=== PATIENT | male | born 1995 | race African-American/Black ===

== ENCOUNTER 2017-11-11 16:59 | Emergency (ER) | payer MEDICAID, OTHER ==
[2017-11-11 17:22] VITALS: BP 132/60; PULSE 79; RESP 18; TEMP 99.3
--- NOTE | 2017-11-11 17:58 | ED ---
General Adult HPI - General Chief complaint: ENT Stated complaint: fever, sore throat Time Seen by Provider: 11/11/17 17:22 Source: patient, RN notes reviewed Mode of arrival: ambulatory Limitations: no limitations - History of Present Illness Initial comments: 22-year-old male presents for a chief complaint of sore throat. Patient states this has been ongoing for 3 days. Patient also has a slight cough. Patient states the cough is productive. Patient denies any history of asthma or COPD but patient does smoke. Patient did not check his temperature but states he felt like he had a fever yesterday. Patient has not tried any [id number] medications for relief. Patient denies any shortness of breath or chest pain. Patient denies any nausea or vomiting. No abdominal pain. Patient denies any urinary symptoms. - Related Data Previous Rx's Medication Instructions Recorded Benzonatate [Tessalon Perles] 100 mg PO Q8H PRN #15 capsule 11/11/17 Oseltamivir [Tamiflu] 75 mg PO Q12HR #10 cap 11/11/17 Allergies Allergy/AdvReac Type Severity Reaction Status Date / Time No Known Allergies Allergy Verified 11/11/17 17:22 Review of Systems ROS Statement: Those systems with pertinent positive or pertinent negative responses have been documented in the HPI. ROS Other: All systems not noted in ROS Statement are negative. Past Medical History Past Medical History: No Reported History History of Any Multi-Drug Resistant Organisms: None Reported Past Surgical History: No Surgical Hx Reported Past Psychological History: No Psychological Hx Reported Smoking Status: Current every day smoker Past Alcohol Use History: Occasional Past Drug Use History: None Reported General Exam Limitations: no limitations Eye exam: Present: normal appearance, PERRL, EOMI. Absent: scleral icterus, conjunctival injection, periorbital swelling ENT exam: Present: normal exam, normal oropharynx, mucous membranes moist, TM's normal bilaterally Neck exam: Present: normal inspection. Absent: tenderness, meningismus, lymphadenopathy Respiratory exam: Present: normal lung sounds bilaterally. Absent: respiratory distress, wheezes, rales, rhonchi, stridor Cardiovascular Exam: Present: regular rate, normal rhythm, normal heart sounds. Absent: systolic murmur, diastolic murmur, rubs, gallop, clicks Psychiatric exam: Present: normal affect, normal mood Course Vital Signs 11/11/17 17:19 Temperature 99.3 F Pulse Rate 79 Respiratory 18 Rate Blood Pressure 132/60 O2 Sat by Pulse 97 Oximetry Medical Decision Making - Medical Decision Making 22-year-old male presents to the emergency room for a chief complaint of sore ago. Patient states he has had a sore throat for 3 days. Patient also has a cough that his productive. Patient denies history of asthma or COPD but is a smoker. Patient denies any other symptoms including shortness of breath, chest pain, headache, abdominal pain, or nausea and vomiting. Patient has not had a flu shot. Vitals within normal limits and patient is afebrile in the emergency department: Temp 99.3, pulse 79, respirations 18, blood pressure 132/60, pulse ox 97 room air. Chest x-ray was ordered which demonstrates no acute cardiopulmonary process. Influenza B-positive. Strep negative. Patient will be prescribed Tessalon Perles. I discussed the risks and benefits of Tamiflu including the side effects. Patient requested to have a prescription of Tamiflu. He is to take Tylenol if he develops a fever. He can return to the emergency department if he develops shortness of breath or worsening symptoms. Otherwise he is to follow up with his primary care provider in one to 2 days. - Lab Data Lab Results 11/11/17 11/11/17 Range/Units 17:34 17:34 Influenza Type A RNA Not Detected (Not Detectd) Influenza Type B (PCR) Detected H (Not Detectd) Group A Strep Rapid Negative (Negative) Disposition Clinical Impression: Influenza B Disposition: HOME SELF-CARE Condition: Good Instructions: Influenza (ED) Additional Instructions: Please return to the emergency department if you have worsening symptoms or develops shortness of breath. Otherwise take Tessalon Perles as directed if needed. Take Tamiflu as directed. Take [id number] Tylenol or ibuprofen for fever relief and pain reduction. Follow up with primary care in 1-2 days. Prescriptions: Benzonatate [Tessalon Perles] 100 mg PO Q8H PRN #15 capsule PRN Reason: Cough Oseltamivir [Tamiflu] 75 mg PO Q12HR #10 cap Referrals: None,Stated [Primary Care Provider] - 1-2 days Time of Disposition: 18:27
--- NOTE | 2017-11-11 18:00 | XR ---
EXAMINATION TYPE: XR chest 2V DATE OF EXAM: 11/11/2017 COMPARISON: NONE INDICATION: January TECHNIQUE: Frontal and lateral views of the chest are obtained. FINDINGS: The heart size is normal. The pulmonary vasculature is normal. The lungs are clear. IMPRESSION: 1. No acute pulmonary process.
== END 2017-11-11 18:34 | disposition home or self-care (01) ==
LOC: EC 16:59
DX: J10.1 Influenza due to other identified influenza virus with other respiratory manifestations (principal); F17.200 Nicotine dependence, unspecified, uncomplicated
CPT/HCPCS: 71046; 87081; 87430; 87502; 99283

== ENCOUNTER 2018-07-29 12:46 | Emergency (ER) | payer MEDICAID, OTHER ==
[2018-07-29 12:59] VITALS: BP 138/78; PULSE 95; RESP 20; TEMP 98.4
[2018-07-29] MEDS ORDERED: ACET/COD 300 MG/30 MG STARTER PACK 6 TAB BTL PO STA (14:14)
--- NOTE | 2018-07-29 14:17 | ED ---
Skin/Abscess/FB HPI - General Chief complaint: Skin/Abscess/Foreign Body Stated complaint: Cyst on buttocks Time Seen by Provider: 07/29/18 14:10 Source: patient, RN notes reviewed Mode of arrival: ambulatory Limitations: no limitations - History of Present Illness Initial comments: This a 23-year-old male presents emergency Department chief complaint of abscess on his buttocks region. Patient states he has multiple. Patient states he also has some sores on his leg. Patient states his started after he had out of snf a few days ago. Patient has no other complaints are chao. 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 Patient reports no fever no chills. Patient offers no other complaints. - Related Data Previous Rx's Medication Instructions Recorded Benzonatate [Tessalon Perles] 100 mg PO Q8H PRN #15 capsule 11/11/17 Oseltamivir [Tamiflu] 75 mg PO Q12HR #10 cap 11/11/17 Cephalexin [Keflex] 500 mg PO Q6HR #40 cap 07/29/18 Ibuprofen [Motrin] 600 mg PO Q8HR PRN #30 tab 07/29/18 Sulfamethox-Tmp 800-160Mg [Bactrim 1 each PO Q12HR #20 tab 07/29/18 Ds] Allergies Allergy/AdvReac Type Severity Reaction Status Date / Time No Known Allergies Allergy Verified 07/29/18 12:59 Review of Systems ROS Statement: Those systems with pertinent positive or pertinent negative responses have been documented in the HPI. ROS Other: All systems not noted in ROS Statement are negative. Past Medical History Past Medical History: No Reported History History of Any Multi-Drug Resistant Organisms: None Reported Past Surgical History: No Surgical Hx Reported Past Psychological History: No Psychological Hx Reported Smoking Status: Current every day smoker Past Alcohol Use History: Occasional Past Drug Use History: None Reported General Exam Limitations: no limitations General appearance: alert, in no apparent distress Head exam: Present: atraumatic, normocephalic, normal inspection Eye exam: Present: normal appearance, PERRL, EOMI. Absent: scleral icterus, conjunctival injection, periorbital swelling Respiratory exam: Present: normal lung sounds bilaterally. Absent: respiratory distress, wheezes, rales, rhonchi, stridor Cardiovascular Exam: Present: regular rate, normal rhythm, normal heart sounds. Absent: systolic murmur, diastolic murmur, rubs, gallop, clicks GI/Abdominal exam: Present: soft, normal bowel sounds. Absent: distended, tenderness, guarding, rebound, rigid Skin exam: Present: warm, dry, intact, normal color, other (Multiple abscesses are open and draining and buttocks region large is on his right cheek with oxygen a 2 cm). Absent: rash Course Vital Signs 07/29/18 12:57 Temperature 98.4 F Pulse Rate 95 Respiratory 20 Rate Blood Pressure 138/78 O2 Sat by Pulse 99 Oximetry Medical Decision Making - Medical Decision Making 23-year-old male presented for abscesses. There are open and draining. Patient was started on Bactrim and Keflex. We did discuss warm compresses and close follow-up. Disposition Clinical Impression: Abscess of multiple sites, Abscess of buttock Disposition: HOME SELF-CARE Condition: Stable Instructions: Abscess (ED) Additional Instructions: Please return to the Emergency Department if symptoms worsen or any other concerns. Prescriptions: Cephalexin [Keflex] 500 mg PO Q6HR #40 cap Ibuprofen [Motrin] 600 mg PO Q8HR PRN #30 tab PRN Reason: Pain Sulfamethox-Tmp 800-160Mg [Bactrim Ds] 1 each PO Q12HR #20 tab Is patient prescribed a controlled substance at d/c from ED?: No Referrals: None,Stated [Primary Care Provider] - 1-2 days Time of Disposition: 14:17
== END 2018-07-29 14:26 | disposition home or self-care (01) ==
LOC: EC 12:46
DX: L02.31 Cutaneous abscess of buttock (principal); L02.01 Cutaneous abscess of face; F17.200 Nicotine dependence, unspecified, uncomplicated; Z86.14 Personal history of Methicillin resistant Staphylococcus aureus infection
CPT/HCPCS: 99282

== ENCOUNTER 2021-12-28 20:15 | Emergency (ER) | payer OTHER ==
[2021-12-28] MEDS ORDERED: NALOXONE 0.4 MG/ML 1 ML VIAL IVP PRN (20:32)
[2021-12-28] MEDS ORDERED: SODIUM CHLORIDE 0.9% 1,000 ML IV STA (20:33)
[2021-12-28 20:36] VITALS: TEMP 97.9
--- NOTE | 2021-12-28 20:53 | ED ---
Overdose HPI - General Stated Complaint: Overdose Time Seen by Provider: 12/28/21 20:29 Source: RN notes reviewed - History of Present Illness Initial Comments: This is a pleasant 26-year-old male presents to emergency department admitting to using heroin, cocaine, and tramadol. He states she took 2 tramadol, has used cocaine within the last few hours as well as heroin. Apparently the patient lost consciousness and EMS was called. Patient responded to Narcan in the EMS rig. Right now is fatigue and drowsiness. He denies any pain. Denies any head or neck pain or injury. States he did not overdose on any other medications. Patient has consumed alcohol with last 24 hours. States he has a history of high blood pressure. No headache, no fever or chills, no changes in vision or hearing, no sore throat or difficulty with speech, no neck pain, no chest pain or shortness of breath, no abdominal pain, no nausea or vomiting, no changes in urination or bowel movements, no numbness or tingling, no extremity pain, no skin rashes or lesions. MD Complaint: intentional overdose - Related Data Home Medications Medication Instructions Recorded Confirmed No Known Home Medications 12/28/21 12/28/21 Allergies Allergy/AdvReac Type Severity Reaction Status Date / Time No Known Allergies Allergy Verified 12/28/21 22:22 Review of Systems ROS Statement: Those systems with pertinent positive or pertinent negative responses have been documented in the HPI. ROS Other: All systems not noted in ROS Statement are negative. Past Medical History Past Medical History: No Reported History History of Any Multi-Drug Resistant Organisms: None Reported Past Surgical History: No Surgical Hx Reported Past Psychological History: No Psychological Hx Reported Past Alcohol Use History: Occasional Past Drug Use History: None Reported General Exam - General Exam Comments Initial Comments: Patient appears somewhat fatigued and drowsy but is giving adequate history. Cranial nerves II through XII are intact. No evidence of head injury or trauma. General appearance: alert, in no apparent distress, appears intoxicated (Appears drowsy) Head exam: Present: atraumatic, normocephalic, normal inspection Eye exam: Present: normal appearance, PERRL, EOMI. Absent: scleral icterus, conjunctival injection, periorbital swelling Pupils: Present: normal accommodation. Absent: unequal ENT exam: Present: normal exam, mucous membranes moist Neck exam: Present: normal inspection. Absent: tenderness, meningismus, lymphadenopathy Respiratory exam: Present: normal lung sounds bilaterally. Absent: respiratory distress, wheezes, rales, rhonchi, stridor, chest wall tenderness, accessory muscle use, decreased breath sounds, prolonged expiratory Cardiovascular Exam: Present: regular rate, normal rhythm, normal heart sounds. Absent: systolic murmur, diastolic murmur, rubs, gallop, clicks GI/Abdominal exam: Present: soft, normal bowel sounds. Absent: distended, tenderness, guarding, rebound, rigid Extremities exam: Present: normal inspection, full ROM, normal capillary refill. Absent: tenderness, pedal edema, joint swelling, calf tenderness Back exam: Present: normal inspection, full ROM. Absent: tenderness, muscle spasm, paraspinal tenderness, vertebral tenderness, rash noted Neurological exam: Present: alert, oriented X3, CN II-XII intact Expanded Patient oriented to: Present: person, place, time Speech: Present: fluid speech Cranial nerves: EOM's Intact: Normal, Gag Reflex: Normal, Tongue Deviation: Normal, Nystagmus: Normal, Facial Sensation: Normal Motor strength exam: RUE: 5, LUE: 5, RLE: 5, LLE: 5 Eye Response: (4) open spontaneously Motor Response: (6) obeys commands Verbal Response: (5) oriented Psychiatric exam: Present: normal affect, normal mood. Absent: anxious, flat affect, homicidal ideation, suicidal ideation Skin exam: Present: warm, dry, intact, normal color. Absent: rash Course Vital Signs 12/28/21 12/28/21 12/28/21 20:20 20:36 20:38 Temperature 97.9 F Pulse Rate 105 H 101 H Respiratory 10 L 10 L Rate Blood Pressure 129/73 129/73 O2 Sat by Pulse 98 Oximetry - Reevaluation(s) Reevaluation #1: 12/28/21 22:39 Medical record is reviewed Symptoms are improved here in the emergency department Patient is informed of results and questions answered Patient in no distress Medical Decision Making - Medical Decision Making Percents after an accidental heroin overdose. Denies suicidality or homicidality. Denies taking any other medications other than to Ultram which she normally takes for his back. Does admit to cocaine abuse and use over the last 24 hours. Also alcohol. Responded to Narcan. - Lab Data Result diagrams: 12/28/21 20:45 12/28/21 20:45 Lab Results 12/28/21 12/28/21 12/28/21 Range/Units 20:45 20:45 20:45 WBC 9.3 (3.8-10.6) k/uL RBC 5.01 (4.30-5.90) m/uL Hgb 15.3 (13.0-17.5) gm/dL Hct 44.4 (39.0-53.0) % MCV 88.5 (80.0-100.0) fL MCH 30.5 (25.0-35.0) pg MCHC 34.4 (31.0-37.0) g/dL RDW 14.4 (11.5-15.5) % Plt Count 213 (150-450) k/uL MPV 6.8 Neutrophils % 80 % Lymphocytes % 13 % Monocytes % 5 % Eosinophils % 0 % Basophils % 0 % Neutrophils # 7.4 (1.3-7.7) k/uL Lymphocytes # 1.2 (1.0-4.8) k/uL Monocytes # 0.5 (0-1.0) k/uL Eosinophils # 0.0 (0-0.7) k/uL Basophils # 0.0 (0-0.2) k/uL PT 12.7 H (9.0-12.0) sec INR 1.2 H (<1.2) Sodium 140 (137-145) mmol/L Potassium 4.1 (3.5-5.1) mmol/L Chloride 103 (98-107) mmol/L Carbon Dioxide 23 (22-30) mmol/L Anion Gap 14 mmol/L BUN 10 (9-20) mg/dL Creatinine 1.16 (0.66-1.25) mg/dL Est GFR (CKD-EPI)AfAm >90 (>60 ml/min/1.73 sqM) Est GFR (CKD-EPI)NonAf 88 (>60 ml/min/1.73 sqM) Glucose 120 H (74-99) mg/dL Calcium 8.7 (8.4-10.2) mg/dL Total Bilirubin 1.0 (0.2-1.3) mg/dL AST 31 (17-59) U/L ALT 21 (4-49) U/L Alkaline Phosphatase 43 (38-126) U/L Troponin I (0.000-0.034) ng/mL Total Protein 7.7 (6.3-8.2) g/dL Albumin 4.8 (3.5-5.0) g/dL Salicylates <1.0 mg/dL Acetaminophen <10.0 ug/mL Serum Alcohol 45 mg/dL 12/28/21 Range/Units 20:45 WBC (3.8-10.6) k/uL RBC (4.30-5.90) m/uL Hgb (13.0-17.5) gm/dL Hct (39.0-53.0) % MCV (80.0-100.0) fL MCH (25.0-35.0) pg MCHC (31.0-37.0) g/dL RDW (11.5-15.5) % Plt Count (150-450) k/uL MPV Neutrophils % % Lymphocytes % % Monocytes % % Eosinophils % % Basophils % % Neutrophils # (1.3-7.7) k/uL Lymphocytes # (1.0-4.8) k/uL Monocytes # (0-1.0) k/uL Eosinophils # (0-0.7) k/uL Basophils # (0-0.2) k/uL PT (9.0-12.0) sec INR (<1.2) Sodium (137-145) mmol/L Potassium (3.5-5.1) mmol/L Chloride (98-107) mmol/L Carbon Dioxide (22-30) mmol/L Anion Gap mmol/L BUN (9-20) mg/dL Creatinine (0.66-1.25) mg/dL Est GFR (CKD-EPI)AfAm (>60 ml/min/1.73 sqM) Est GFR (CKD-EPI)NonAf (>60 ml/min/1.73 sqM) Glucose (74-99) mg/dL Calcium (8.4-10.2) mg/dL Total Bilirubin (0.2-1.3) mg/dL AST (17-59) U/L ALT (4-49) U/L Alkaline Phosphatase (38-126) U/L Troponin I <0.012 (0.000-0.034) ng/mL Total Protein (6.3-8.2) g/dL Albumin (3.5-5.0) g/dL Salicylates mg/dL Acetaminophen ug/mL Serum Alcohol mg/dL - EKG Data EKG Comments: EKG done at 2055 and read by the ED attending physician reveals sinus rhythm with a rate in 96. Possible left atrial enlargement, RSR pattern noted in V1 and V2. No acute ST or T-wave changes. Normal axis. Normal intervals. Disposition Clinical Impression: Heroin abuse, Cocaine abuse, Accidental drug overdose Disposition: HOME SELF-CARE Condition: Good Instructions (If sedation given, give patient instructions): Adult Overdose (ED), Polysubstance Abuse (ED) Additional Instructions: Follow-up with your regular physician as directed. Return to the ER immediately if any symptoms worsen, new symptoms arise, or any other problems develop. Provide patient with outpatient resources for substance abuse Is patient prescribed a controlled substance at d/c from ED?: No Referrals: Abdullahi Whitt [STAFF PHYSICIAN] - 1-2 days Time of Disposition: 22:39
[2021-12-28 21:06] LABS: Basophils % (A) 0 %; Eosinophils % (A) 0 %; HCT 44.4 % (39.0-53.0); HGB 15.3 gm/dL (13.0-17.5); Lymphocytes # (A) 1.2 k/uL (1.0-4.8); Lymphocytes % (A) 13 %; MCH 30.5 pg (25.0-35.0); MCHC 34.4 g/dL (31.0-37.0); MCV 88.5 fL (80.0-100.0); Mean Platelet Volume 6.8; Monocytes # (A) 0.5 k/uL (0-1.0); Monocytes % (A) 5 %; Neutrophils # (A) 7.4 k/uL (1.3-7.7); Neutrophils % (A) 80 %; Platelet Count 213 k/uL (150-450); RBC 5.01 m/uL (4.30-5.90); RDW 14.4 % (11.5-15.5); WBC 9.3 k/uL (3.8-10.6)
--- NOTE | 2021-12-28 21:06 | XR ---
EXAMINATION TYPE: XR chest 1V portable DATE OF EXAM: 12/28/2021 COMPARISON: 11/11/2017 HISTORY: Pain TECHNIQUE: Single view FINDINGS: Heart and mediastinum are normal. Lungs are clear. Diaphragm is normal. There are chest nicole ds. Bony thorax is intact. IMPRESSION: Normal chest. No change.
[2021-12-28 21:15] LABS: INR 1.2 (<1.2); Prothrombin Time 12.7 sec (9.0-12.0)
[2021-12-28 21:21] LABS: ALT 21 U/L (4-49); Acetaminophen <10.0 ug/mL; African American GFR (CKD) >90 (>60 ml/min/1.73 sqM); Albumin 4.8 g/dL (3.5-5.0); Alcohol 45 mg/dL; Anion Gap 14 mmol/L; Blood Urea Nitrogen 10 mg/dL (9-20); Calcium 8.7 mg/dL (8.4-10.2); Carbon Dioxide 23 mmol/L (22-30); Chloride 103 mmol/L (98-107); Glucose 120 mg/dL (74-99); Non-African American GFR(CKD) 88 (>60 ml/min/1.73 sqM); Salicylate <1.0 mg/dL; Sodium 140 mmol/L (137-145); Total Protein 7.7 g/dL (6.3-8.2)
[2021-12-28 21:53] LABS: AST 31 U/L (17-59); Alkaline Phosphatase 43 U/L (38-126); Potassium 4.1 mmol/L (3.5-5.1)
[2021-12-28 23:03] VITALS: BP 121/77; PULSE 84; RESP 16
== END 2021-12-28 23:11 | disposition home or self-care (01) ==
LOC: EC 20:15
DX: T40.1X1A Poisoning by heroin, accidental (unintentional), initial encounter (principal); F11.10 Opioid abuse, uncomplicated; F14.10 Cocaine abuse, uncomplicated; R53.83 Other fatigue; R40.0 Somnolence
CPT/HCPCS: 93005; 80053; 84484; 85025; 85610; 80143; 80179; 71045; 99284; 96374; 96361; G0480; J2310; 80320

== ENCOUNTER 2022-01-09 12:07 | Observation (INO) | payer OTHER ==
--- NOTE | 2022-01-09 13:16 | ED ---
Overdose HPI - General Source: patient, EMS, RN notes reviewed Mode of arrival: EMS Limitations: altered mental status <Phu Worrell - Last Filed: 01/09/22 13:14> - History of Present Illness MD Complaint: accidental overdose -: unknown Intent: unwilling to say Context: Intentional Overdose: drug/ETOH problems Context: Accidental Overdose: wanted to get high Associated Symptoms: depression Treatments Prior to Arrival: none <Roderick Brambila - Last Filed: 01/10/22 01:16> - General Chief Complaint: Overdose Stated Complaint: overdose Time Seen by Provider: 01/09/22 12:11 - History of Present Illness Initial Comments: This a 26-year-old male presents emergency department via EMS for overdose. Patient reportedly was found in the home and conscious. Patient did receive 2 mg Narcan by EMS. Patient did arouse. Patient did have an episode of emesis and which they found a bag full of white substance. Patient has had recent ER visit for heroin and cocaine use. Patient is drowsy patient has no physical complaints other than feeling cold at this time. (Phu Worrell) - Related Data Home Medications Medication Instructions Recorded Confirmed No Known Home Medications 12/28/21 01/09/22 Allergies Allergy/AdvReac Type Severity Reaction Status Date / Time No Known Allergies Allergy Verified 01/09/22 14:18 Review of Systems ROS Other: All systems not noted in ROS Statement are negative. <Phu Worrell - Last Filed: 01/09/22 13:14> ROS Other: All systems not noted in ROS Statement are negative. <Roderick Brambila - Last Filed: 01/10/22 01:16> ROS Statement: Those systems with pertinent positive or pertinent negative responses have been documented in the HPI. Past Medical History Past Medical History: No Reported History History of Any Multi-Drug Resistant Organisms: None Reported Past Surgical History: No Surgical Hx Reported Past Psychological History: No Psychological Hx Reported Smoking Status: Unknown if ever smoked Past Alcohol Use History: Occasional Past Drug Use History: None Reported <Phu Worrell - Last Filed: 01/09/22 13:14> General Exam Limitations: altered mental status General appearance: alert, in no apparent distress Head exam: Present: atraumatic, normocephalic, normal inspection Eye exam: Present: normal appearance, PERRL, EOMI. Absent: scleral icterus, conjunctival injection, periorbital swelling ENT exam: Present: normal exam, normal oropharynx, mucous membranes moist Neck exam: Present: normal inspection, full ROM. Absent: tenderness, m eningismus, lymphadenopathy Respiratory exam: Present: normal lung sounds bilaterally. Absent: respiratory distress, wheezes, rales, rhonchi, stridor Cardiovascular Exam: Present: regular rate, normal rhythm, normal heart sounds. Absent: systolic murmur, diastolic murmur, rubs, gallop, clicks GI/Abdominal exam: Present: soft, normal bowel sounds. Absent: distended, tenderness, guarding, rebound, rigid Neurological exam: Present: alert Skin exam: Present: warm, dry, intact, normal color. Absent: rash <Phu Worrell M - Last Filed: 01/09/22 13:14> Limitations: altered mental status General appearance: alert, lethargic, obtunded Head exam: Present: atraumatic, normocephalic, normal inspection Eye exam: Present: normal appearance, PERRL, EOMI. Absent: scleral icterus, conjunctival injection, periorbital swelling ENT exam: Present: normal exam, mucous membranes moist Neck exam: Present: normal inspection. Absent: tenderness, meningismus, lymphadenopathy Respiratory exam: Present: normal lung sounds bilaterally. Absent: respiratory distress, wheezes, rales, rhonchi, stridor Cardiovascular Exam: Present: regular rate, normal rhythm, normal heart sounds. Absent: systolic murmur, diastolic murmur, rubs, gallop, clicks GI/Abdominal exam: Present: soft, normal bowel sounds. Absent: distended, tenderness, guarding, rebound, rigid Extremities exam: Present: normal inspection, full ROM, normal capillary refill. Absent: tenderness, pedal edema, joint swelling, calf tenderness Back exam: Present: normal inspection Neurological exam: Present: alert, oriented X3, CN II-XII intact Psychiatric exam: Present: normal affect, normal mood Skin exam: Present: warm, dry, intact, normal color. Absent: rash <Roderick Brambila - Last Filed: 01/10/22 01:16> Course <Roderick Brambila - Last Filed: 01/10/22 01:16> Vital Signs 01/09/22 01/09/22 01/09/22 12:12 16:12 16:13 Temperature 98.7 F Pulse Rate 89 109 H Respiratory 18 16 24 Rate Blood Pressure 118/86 123/69 O2 Sat by Pulse 98 98 Oximetry 01/09/22 01/10/22 18:53 00:11 Temperature 100.5 F H Pulse Rate 107 H 104 H Respiratory 26 H 18 Rate Blood Pressure 123/69 111/64 O2 Sat by Pulse 97 98 Oximetry - Reevaluation(s) Reevaluation #1: 01/10/22 01:15 Records reviewed (Roderick Brambila) Reevaluation #2: 01/10/22 01:15 Patient still has episodes of diminished responsiveness (Roderick Brambila) Medical Decision Making <Roderick Brambila - Last Filed: 01/10/22 01:16> - Medical Decision Making 26 male for psychiatric evaluation known drug ingestion still with diminished both of responsiveness, patient will be admitted for psychiatric evaluation and treatment as well as monitoring of overdose (Roderick Brambila) - Lab Data Lab Results 01/09/22 Range/Units 15:58 Urine Opiates Screen Not Detected (NotDetected) Ur Oxycodone Screen Not Detected (NotDetected) Urine Methadone Screen Not Detected (NotDetected) Ur Propoxyphene Screen Not Detected (NotDetected) Ur Barbiturates Screen Not Detected (NotDetected) U Tricyclic Antidepress Not Detected (NotDetected) Ur Phencyclidine Scrn Not Detected (NotDetected) Ur Amphetamines Screen Not Detected (NotDetected) U Methamphetamines Scrn Not Detected (NotDetected) U Benzodiazepines Scrn Not Detected (NotDetected) Urine Cocaine Screen Detected H (NotDetected) U Marijuana (THC) Screen Detected H (NotDetected) Disposition <Phu Worrell - Last Filed: 01/09/22 13:14> Is patient prescribed a controlled substance at d/c from ED?: No <Roderick Brambila - Last Filed: 01/10/22 01:16> Clinical Impression: Heroin abuse, Cocaine abuse, Accidental drug overdose, Drug overdose Disposition: ADMITTED IP TO THIS HOSP Condition: Fair Referrals: None,Stated [Primary Care Provider] - 1-2 days
[2022-01-09] MEDS ORDERED: NALOXONE 0.4 MG/ML 1 ML VIAL IVP STA (16:04)
[2022-01-09] MEDS ORDERED: ONDANSETRON 4 MG/2 ML VIAL IVP STA (16:04)
[2022-01-09 17:03] LABS: Amphetamine Screen,Urine Not Detected (NotDetected); Benzodiazepines Screen,Urine Not Detected (NotDetected); Cocaine Screen,Urine Detected (NotDetected); Methadone Screen, Urine Not Detected (NotDetected); Opiate Screen,Urine Not Detected (NotDetected); Phencyclidine Screen,Urine Not Detected (NotDetected); Tricyclic Antidepressant,Urine Not Detected (NotDetected); Urn Cannabinoid Scrn Detected (NotDetected)
[2022-01-09 17:04] LABS: Barbiturate Screen,Urine Not Detected (NotDetected); Oxycodone Screen, Urine Not Detected (NotDetected)
[2022-01-10] MEDS ORDERED: ACETAMINOPHEN TAB 500 MG TAB PO STA (00:10)
[2022-01-10] MEDS ORDERED: NALOXONE 0.4 MG/ML 1 ML VIAL IV PRN (01:11)
[2022-01-10] MEDS ORDERED: ONDANSETRON 4 MG/2 ML VIAL IVP PRN (01:11)
[2022-01-10] MEDS ORDERED: IBUPROFEN 800 MG TAB PO STA (01:11)
[2022-01-10] MEDS: SODIUM CHLORIDE 0.9% 1,000 ML IV SCH ×4 (02:23→23:16)
[2022-01-10 02:40] LABS: INR 1.3 (<1.2)
[2022-01-10 02:55] LABS: ALT 20 U/L (4-49); AST 38 U/L (17-59); African American GFR (CKD) >90 (>60 ml/min/1.73 sqM); Alkaline Phosphatase 37 U/L (38-126); Anion Gap 6 mmol/L; Blood Urea Nitrogen 11 mg/dL (9-20); Calcium 7.9 mg/dL (8.4-10.2); Carbon Dioxide 28 mmol/L (22-30); Chloride 101 mmol/L (98-107); Glucose 97 mg/dL (74-99); Magnesium 1.4 mg/dL (1.6-2.3); Non-African American GFR(CKD) >90 (>60 ml/min/1.73 sqM); Phosphorus 3.1 mg/dL (2.5-4.5); Sodium 135 mmol/L (137-145); Total Bilirubin 0.9 mg/dL (0.2-1.3); Total Protein 5.3 g/dL (6.3-8.2)
[2022-01-10 03:03] LABS: Basophils # (A) 0.1 k/uL (0-0.2); Basophils % (A) 0 %; Eosinophils % (A) 0 %; HCT 43.7 % (39.0-53.0); Lymphocytes # (A) 0.6 k/uL (1.0-4.8); Lymphocytes % (A) 3 %; MCH 28.9 pg (25.0-35.0); MCV 90.1 fL (80.0-100.0); Monocytes # (A) 1.3 k/uL (0-1.0); Monocytes % (A) 6 %; Neutrophils # (A) 19.1 k/uL (1.3-7.7); Neutrophils % (A) 90 %; Platelet Count 168 k/uL (150-450); RBC 4.85 m/uL (4.30-5.90); WBC 21.2 k/uL (3.8-10.6)
--- NOTE | 2022-01-10 06:37 | XR ---
EXAMINATION TYPE: XR chest 1V portable DATE OF EXAM: 01/10/2022 COMPARISON: 12/28/2021 HISTORY: Possible foreign body TECHNIQUE: Single view FINDINGS: Heart is normal. There is some diffuse pneumonia left lower lobe. There is a minimal infilt rate also right lower lobe. No heart failure. There are no hilar masses. IMPRESSION: Left lower lobe pneumonia appears new compared to old exam. No evidence of a foreign body .
--- NOTE | 2022-01-10 06:38 | XR ---
EXAMINATION TYPE: XR KUB portable DATE OF EXAM: 01/10/2022 COMPARISON: NONE HISTORY: Foreign body TECHNIQUE: 2 views FINDINGS: 2 views upright were obtained. No sign of intestinal obstruction or pneumoperitoneum. Fecal pattern is normal. No sign of radiopaque foreign body in the abdomen. There is no evidence of a mass . IMPRESSION: Nonacute abdomen.
--- NOTE | 2022-01-10 12:31 | P.HPIM ---
History of Present Illness H&P Date: 01/10/22 Chief Complaint: Accidental overdose 26-year-old man who has polysubstance abuse issues presented with a several overdose. Patient was in his house using heroin, and was found down by emergency medical services. Patient was given 2 mg of Narcan and came back around, then pursue this to vomit up some bags of cocaine. Patient was brought in by ambulance for further workup. Family would like patient to be evaluated by psychiatry, but have not committed him at this time. Upon my evaluation today, patient reports feeling back to normal, and expresses his wish to leave the hospital. I told him that at this time we are waiting for psychiatry evaluation, and would follow-up with him later in the day. He denies fevers, chills, nausea, vomiting, chest pain, palpitations, sick day, present rate, cough, dyspnea, abdominal pain, constipation, diarrhea, dysuria, dyschezia, numbness/weakness of extremities. In the emergency room, patient is afebrile, 116/77, heart rate is 88, 97% on room air. CBC shows leukocytosis at 21.2. Chemistries are unremarkable. LFTs showed low total protein of 5.3, low albumin of 3.0. Coags are significant for an elevated PT of 14, elevated INR 1.3. Urine tox screen is positive for cocaine, marijuana. Influenza A/B, Covid, RSV are all negative. Chest x-ray shows left lower lobe pneumonia which appears new compared to old exam. KUB shows nonacute abdomen. All Systems reviewed and pertinent positives and negatives noted in HPI, all other symptoms are negative Gen: in no apparent distress, resting comfortably in bed Eyes: PERRL, no scleral injection or icterus HENT: normocephalic, atraumatic, good hearing acuity, moist mucous membranes Neck: no tracheal deviation, full range of motion Resp: good air exchange, breathing comfortably with no accessory muscle use, no tactile fremitus CVS: good distal perfusion x 4, no pitting edema GI: soft, NTTP, ND, no hepatosplenomegaly : no suprapubic tenderness, no CVAT, foote catheter not present MSK: no clubbing, no cyanosis, no noted contractures of extremities Skin: no noted rashes, petechiae; temperature of skin is appropriate Neuro: moving all extremities without signs of weakness, CN II-XII intact Psych: cooperative, euthymic mood, insight and judgment impaired Labs and imaging reviewed as above Assessment/plan: Accidental narcotic overdose Heroin abuse Cocaine abuse Marijuana abuse -Admit to observation -Psychiatry consult -Narcan when necessary -Zofran when necessary -Clonidine when necessary for withdrawal symptoms -One-to-one sitter Patient is full code DVT prophylaxis with early ambulation Past Medical History Past Medical History: No Reported History History of Any Multi-Drug Resistant Organisms: None Reported Past Surgical History: No Surgical Hx Reported Past Psychological History: No Psychological Hx Reported Smoking Status: Unknown if ever smoked Past Alcohol Use History: Occasional Past Drug Use History: None Reported Medications and Allergies Home Medications Medication Instructions Recorded Confirmed Type No Known Home Medications 12/28/21 01/09/22 History Allergies Allergy/AdvReac Type Severity Reaction Status Date / Time No Known Allergies Allergy Verified 01/09/22 14:18 Physical Exam Osteopathic Statement: *. No significant issues noted on an osteopathic structural exam other than those noted in the History and Physical/Consult. Vitals: Vital Signs Temp Pulse Resp BP Pulse Ox 01/10/22 12:00 88 16 116/77 97 01/10/22 08:45 90 18 105/51 98 01/10/22 06:00 91 18 01/10/22 05:00 95 18 103/61 99 01/10/22 04:00 93 18 103/55 100 01/10/22 03:00 92 18 01/10/22 02:00 76 18 107/55 97 01/10/22 01:00 95 18 104/76 98 01/10/22 00:11 100.5 F H 104 H 18 111/64 98 01/09/22 18:53 107 H 26 H 123/69 97 01/09/22 16:13 109 H 24 123/69 98 01/09/22 16:12 16 Results CBC & Chem 7: 01/10/22 02:25 01/10/22 02:25 Labs: Abnormal Lab Results - Last 24 Hours (Table) 01/09/22 01/10/22 01/10/22 Range/Units 15:58 02:25 02:25 WBC 21.2 H (3.8-10.6) k/uL Neutrophils # 19.1 H (1.3-7.7) k/uL Lymphocytes # 0.6 L (1.0-4.8) k/uL Monocytes # 1.3 H (0-1.0) k/uL PT 14.0 H (9.0-12.0) sec INR 1.3 H (<1.2) Sodium (137-145) mmol/L Calcium (8.4-10.2) mg/dL Magnesium (1.6-2.3) mg/dL Alkaline Phosphatase (38-126) U/L Total Protein (6.3-8.2) g/dL Albumin (3.5-5.0) g/dL Urine Cocaine Screen Detected H (NotDetected) U Marijuana (THC) Screen Detected H (NotDetected) 01/10/22 Range/Units 02:25 WBC (3.8-10.6) k/uL Neutrophils # (1.3-7.7) k/uL Lymphocytes # (1.0-4.8) k/uL Monocytes # (0-1.0) k/uL PT (9.0-12.0) sec INR (<1.2) Sodium 135 L (137-145) mmol/L Calcium 7.9 L (8.4-10.2) mg/dL Magnesium 1.4 L (1.6-2.3) mg/dL Alkaline Phosphatase 37 L (38-126) U/L Total Protein 5.3 L (6.3-8.2) g/dL Albumin 3.0 L (3.5-5.0) g/dL Urine Cocaine Screen (NotDetected) U Marijuana (THC) Screen (NotDetected)
[2022-01-10] MEDS ORDERED: ACETAMINOPHEN TAB 325 MG TAB PO PRN (12:33)
--- NOTE | 2022-01-10 13:27 | P.CN ---
Psychiatric Consult - . Consult date: 01/10/22 Consult:: 01/10/22 13:26 IDENTIFYING DATA: This patient is a single, unemployed, 26-year-old - [place] male with significant history of heroin addiction who presented to the hospital after an unintentional overdose. HISTORY OF PRESENT ILLNESS: The patient presented to the hospital on , brought into the hospital by EMS after an overdose on heroin. The patient was reportedly found his home and was administered Narcan by EMS. Patient was arousable and ended up with emesis. Prior to this presentation, the patient was also recently seen in the ED for heroin and cocaine use. Psychiatrist been consulted for psychiatric evaluation. Present at the patient's bedside as his mother Kaur. Patient is agreeable to having her present during the psychiatric evaluation. The patient vehemently states that his intention was to get high. He reports no intention at all to ever try to kill himself. He currently denies any suicidal or homicidal ideation, intention, and/or plan. He denies any prior attempts at suicide. The patient does not endorse any significant symptoms of depression at this time. He denies any changes in his appetite, sleep, crying episodes, anhedonia, or motivation changes. He and his mother both acknowledge some irritability however denies any significant symptoms of overt arelis or hypomania. The patient does not report any significant history of auditory or visual hallucinations. He denies any paranoia or other delusions. The patient does have a significant history of substance abuse. He has been abusing heroin and cocaine. He reports that he last used yesterday. The patient has been previously admitted to [facility] for rehabilitation and was discharged this past September. He is currently not in any outpatient substance abuse treatment. The patient reports that he began using substances at the age of 20, starting with narcotic pills and transition to heroin when he was 24. The patient also denies any IV heroin use. PAST PSYCHIATRIC HISTORY: Patient reports no previous psychiatric history. Patient denies being on any psychiatric medications. The patient states that he was prescribed Vivitrol injection from [facility]. Patient denies any previous psychiatric hospitalizations. Patient denies any psychiatric outpatient follow-up. Patient denies any history of suicide attempts in the past. PAST MEDICAL HISTORY: Past Medical History: No Reported History History of Any Multi-Drug Resistant Organisms: None Reported Past Surgical History: No Surgical Hx Reported Past Psychological History: No Psychological Hx Reported Smoking Status: Unknown if ever smoked Past Alcohol Use History: Occasional Past Drug Use History: None Reported ALLERGIES: NO KNOWN DRUG ALLERGIES CHEMICAL DEPENDENCY HISTORY: as per HPI regarding his heroin abuse. Progress tobacco, the patient denies any tobacco or marijuana use. He reports no significant alcohol use. FAMILY PSYCHIATRIC/SUBSTANCE USE HISTORY: The patient and his mother both report significant history of schizophrenia and bipolar on his father's side. SOCIAL HISTORY: Patient was born and raised in [place], [place]. He graduated high school and was previously working in a factory. He lives with his mother. As per mother, the patient often stays at different friends' homes. He is single, never , and has no children. MENTAL STATUS EXAM: General Appearance: Patient appears to be stated age is alert and cooperative. Patient appears to have fair hygiene and grooming wearing hospital gown with intermittent eye contact. Behavior: Patient is calmly lying in bed without any agitated behavior. He does endorse some muscular pain. Speech: Patient's speech is fluent and nonpressured. Mood/Affect: Patient reports their mood is "okay", affect is congruent and euthymic. Suicidality/Homicidality: Patient vehemently denies any suicidal or homicidal ideation, intention, and/or plan. Perceptions: Patient denies any visual hallucinations and denies any auditory hallucinations Though content/process: There is no evidence of any delusional thought content and thought process is linear and goal-directed. Memory and concentration: AOX3, grossly intact for the purposes of this session. Can spell "WORLD" backwards Judgment and insight: Fair Vital Signs Temp 100.5 F H 01/10/22 00:11 Pulse 88 01/10/22 12:00 Resp 16 01/10/22 12:00 BP 116/77 01/10/22 12:00 Pulse Ox 97 01/10/22 12:00 FiO2 Intake & Output 01/09/22 01/10/22 01/10/22 18:59 06:59 18:59 Weight 72.575 kg Laboratory Results WBC 21.2 k/uL (3.8-10.6) H 01/10/22 02:25 RBC 4.85 m/uL (4.30-5.90) 01/10/22 02:25 Hgb 14.0 gm/dL (13.0-17.5) 01/10/22 02:25 Hct 43.7 % (39.0-53.0) 01/10/22 02:25 MCV 90.1 fL (80.0-100.0) 01/10/22 02:25 MCH 28.9 pg (25.0-35.0) 01/10/22 02:25 MCHC 32.0 g/dL (31.0-37.0) 01/10/22 02:25 RDW 13.0 % (11.5-15.5) 01/10/22 02:25 Plt Count 168 k/uL (150-450) 01/10/22 02:25 MPV 7.0 01/10/22 02:25 Neutrophils % 90 % 01/10/22 02:25 Lymphocytes % 3 % 01/10/22 02:25 Monocytes % 6 % 01/10/22 02:25 Eosinophils % 0 % 01/10/22 02:25 Basophils % 0 % 01/10/22 02:25 Neutrophils # 19.1 k/uL (1.3-7.7) H 01/10/22 02:25 Lymphocytes # 0.6 k/uL (1.0-4.8) L 01/10/22 02:25 Monocytes # 1.3 k/uL (0-1.0) H 01/10/22 02:25 Eosinophils # 0.0 k/uL (0-0.7) 01/10/22 02:25 Basophils # 0.1 k/uL (0-0.2) 01/10/22 02:25 PT 14.0 sec (9.0-12.0) H 01/10/22 02:25 INR 1.3 (<1.2) H 01/10/22 02:25 Sodium 135 mmol/L (137-145) L 01/10/22 02:25 Potassium 4.0 mmol/L (3.5-5.1) 01/10/22 02:25 Chloride 101 mmol/L (98-107) 01/10/22 02:25 Carbon Dioxide 28 mmol/L (22-30) 01/10/22 02:25 Anion Gap 6 mmol/L 01/10/22 02:25 BUN 11 mg/dL (9-20) 01/10/22 02:25 Creatinine 1.00 mg/dL (0.66-1.25) 01/10/22 02:25 Est GFR (CKD-EPI)AfAm >90 (>60 ml/min/1.73 sqM) 01/10/22 02:25 Est GFR (CKD-EPI)NonAf >90 (>60 ml/min/1.73 sqM) 01/10/22 02:25 Glucose 97 mg/dL (74-99) 01/10/22 02:25 Calcium 7.9 mg/dL (8.4-10.2) L 01/10/22 02:25 Phosphorus 3.1 mg/dL (2.5-4.5) 01/10/22 02:25 Magnesium 1.4 mg/dL (1.6-2.3) L 01/10/22 02:25 Total Bilirubin 0.9 mg/dL (0.2-1.3) 01/10/22 02:25 AST 38 U/L (17-59) 01/10/22 02:25 ALT 20 U/L (4-49) 01/10/22 02:25 Alkaline Phosphatase 37 U/L (38-126) L 01/10/22 02:25 Total Protein 5.3 g/dL (6.3-8.2) L 01/10/22 02:25 Albumin 3.0 g/dL (3.5-5.0) L 01/10/22 02:25 Urine Opiates Screen Not Detected (NotDetected) 01/09/22 15:58 Ur Oxycodone Screen Not Detected (NotDetected) 01/09/22 15:58 Urine Methadone Screen Not Detected (NotDetected) 01/09/22 15:58 Ur Propoxyphene Screen Not Detected (NotDetected) 01/09/22 15:58 Ur Barbiturates Screen Not Detected (NotDetected) 01/09/22 15:58 U Tricyclic Antidepress Not Detected (NotDetected) 01/09/22 15:58 Ur Phencyclidine Scrn Not Detected (NotDetected) 01/09/22 15:58 Ur Amphetamines Screen Not Detected (NotDetected) 01/09/22 15:58 U Methamphetamines Scrn Not Detected (NotDetected) 01/09/22 15:58 U Benzodiazepines Scrn Not Detected (NotDetected) 01/09/22 15:58 Urine Cocaine Screen Detected (NotDetected) H 01/09/22 15:58 U Marijuana (THC) Screen Detected (NotDetected) H 01/09/22 15:58 Influenza Type A (PCR) Not Detected (Not Detectd) 01/10/22 02:25 Influenza Type B (PCR) Not Detected (Not Detectd) 01/10/22 02:25 RSV (PCR) Not Detected (Not Detectd) 01/10/22 02:25 SARS-CoV-2 (PCR) Not Detected (Not Detectd) 01/10/22 02:25 IMPRESSIONS: Unintentional overdose Heroin use disorder Cocaine use disorder PLAN: -At this time patient DOES NOT meet criteria for inpatient psychiatric admission. Primary diagnosis is unintentional overdose and heroin use disorder. The patient has not had any intention to try and kill himself, has no previous attempts at suicide, and has a supportive family. -Would recommend the following medication changes/additions: No medication recommendations or changes be made at this time. -Recommend the patient is given the access number to be reevaluated for inpatient substance abuse rehabilitation. -Approximately 20 minutes of this conversation was spent providing the patient with motivational interviewing and supportive psychotherapy in regards to substance abuse. Patient was psychiatric at it on the dangers of heroin and cocaine use including respiratory depression, cardiac arrest, and psychiatric sequelae. -Recommend outpatient substance abuse counseling and resources. -Psychiatry will sign off at this point, please contact with any questions. 01/10/22 13:26
[2022-01-10] MEDS: KETOROLAC 15 MG/ML 1 ML VIAL IVP PRN ×2 (13:31→19:29)
[2022-01-10] MEDS: AMPICILLIN-SULBACTAM 3 GM in SODIUM CHLORIDE 0.9% 100 ML IVPB SCH ×2 (16:09→23:15)
[2022-01-11] MEDS: KETOROLAC 15 MG/ML 1 ML VIAL IVP PRN ×2 (02:07→07:52)
[2022-01-11] MEDS: AMPICILLIN-SULBACTAM 3 GM in SODIUM CHLORIDE 0.9% 100 ML IVPB SCH (07:48)
[2022-01-11] MEDS: SODIUM CHLORIDE 0.9% 1,000 ML IV SCH (07:53)
[2022-01-11] MEDS ORDERED: ACETAMINOPHEN IV (For NPO) 1,000 MG in EMPTY BAG 1 BAG IVPB STA (09:05)
[2022-01-11 11:27] LABS: HCT 40.3 % (39.0-53.0); HGB 12.9 gm/dL (13.0-17.5); MCH 29.2 pg (25.0-35.0); MCHC 31.9 g/dL (31.0-37.0); MCV 91.6 fL (80.0-100.0); Mean Platelet Volume 7.3; Platelet Count 189 k/uL (150-450); RDW 12.8 % (11.5-15.5); WBC 18.5 k/uL (3.8-10.6)
[2022-01-11 11:40] LABS: African American GFR (CKD) >90 (>60 ml/min/1.73 sqM); Anion Gap 3 mmol/L; Blood Urea Nitrogen 7 mg/dL (9-20); Calcium 7.6 mg/dL (8.4-10.2); Carbon Dioxide 28 mmol/L (22-30); Chloride 102 mmol/L (98-107); Glucose 118 mg/dL (74-99); Non-African American GFR(CKD) >90 (>60 ml/min/1.73 sqM); Potassium 3.5 mmol/L (3.5-5.1); Sodium 133 mmol/L (137-145)
--- NOTE | 2022-01-11 12:41 | P.DS ---
Providers Date of admission: 01/10/22 01:11 Expected date of discharge: 01/11/22 Attending physician: Alla Dennis MD Consults: 01/10/22 01:11 Consult Physician Routine Consulting Provider: James Haider Consult Reason/Comments: psychEval Do you want consulting provider notified?: Already Contacted Primary care physician: Stated None Hospital Course: Discharge Diagnosis: Unintentional polysubstance overdose Opiate misuse Pneumonia with sepsis Tobacco abuse Hospital Course: Patient is a 26-year-old -[place] male with a history of polysubstance abuse who presented with polysubstance overdose. He was found in his house using heroin and was found down by EMS services. He was given Narcan and came back around. In the ER he underwent extensive evaluation. He was found to have elevated white blood cell count 23,000, chest x-ray of left lower lobe pneumonia. His urine tox came back positive for cocaine and marijuana. His influenza A/B, coping, and RSV were all negative. He was admitted for further monitoring. He was seen by psychiatry and is appears to be an unintentional overdose. He continued to do well. His white blood cell, is improving. He was determined stable for discharge home. Follow-up: Establish primary care physician, Dr. Mccloud has been suggested. Take Augmentin as prescribed. Return with signs and symptoms of worsening pneumonia. Patient seen and examined at bedside. We discussed his diagnosis of pneumonia and that he likely will continue to have some left-sided pain. He is aware. He is asking for pain medications. We discussed that he cannot be giving any opiate medications as he just presented with an overdose. He is understands and is in agreement. He is okay with going home with Motrin. He is asking when he can be discharged. Vital signs reviewed and stable. General: non toxic, no distress, appears at stated age Derm: warm, dry Head: atraumatic, normocephalic, symmetric Eyes: EOMI, no lid lag, anicteric sclera Mouth: no lip lesion, mucus membranes moist Cardiovascular: S1S2 reg, no murmur, positive posterior tibial pulse bilateral, Lungs: Rhonchi left base, no accessory muscle use Abdominal: soft, nontender to palpation, no guarding, no appreciable organomegaly Ext: no gross muscle atrophy, no edema, no contractures Neuro: CN II-XI grossly intact, no focal neuro deficits Psych: Alert, oriented, appropriate affect A total of 25 minutes of time were spent preparing this complex discharge summary. Patient was discharged on 01/11/22. Patient Condition at Discharge: Fair Plan - Discharge Summary New Discharge Prescriptions: New Amoxic-Pot Clav 875-125Mg [Augmentin 875-125] 1 tab PO Q12HR 5 Days #10 tab Ibuprofen [Motrin] 600 mg PO Q8HR PRN #30 tab PRN Reason: Pain Pantoprazole [Protonix] 40 mg PO DAILY #30 tab Discharge Medication List Amoxic-Pot Clav 875-125Mg [Augmentin 875-125] 1 tab PO Q12HR 5 Days #10 tab 01/11/22 [Rx] Ibuprofen [Motrin] 600 mg PO Q8HR PRN #30 tab 01/11/22 [Rx] Pantoprazole [Protonix] 40 mg PO DAILY #30 tab 01/11/22 [Rx] Follow up Appointment(s)/Referral(s): Taiwo Mccloud MD [STAFF PHYSICIAN] - 1 Week None,Stated [Primary Care Provider] - 1-2 days Activity/Diet/Wound Care/Special Instructions: Activity: as tolerated Diet: Regular Special Instructions: abstain from illicit substances Take all medications as prescribed You have pneumonia, please seek care if increasing fevers, coughing, chest pain. You also should follow-up wit a family doctor for your pneumonia, one has been listed for your on your discharge paperwork. Thank you giving us the privilege of caring for you, we wish you well on your journey to better health. Discharge Disposition: HOME SELF-CARE
[2022-01-11 12:51] VITALS: BP 115/72; PULSE 75; RESP 18; TEMP 98.4
--- NOTE | 2022-01-11 13:56 | XR ---
EXAMINATION TYPE: XR ribs LT DATE OF EXAM: 01/11/2022 COMPARISON: NONE HISTORY: Pain TECHNIQUE: 4 views are submitted FINDINGS: Osseous structures are intact. There is a left lower lobe infiltrate and small effusion. No acute displaced rib fracture. IMPRESSION: No acute displaced rib fracture. Left lower lobe pneumonia and small effusion suggested.
== END 2022-01-11 16:09 | disposition home or self-care (01) ==
LOC: EC 12:07 → 5NMEDONC 01-10 01:11
PROVIDERS: ADMIT Internal Medicine; ATTEND Internal Medicine
DX: T40.1X1A Poisoning by heroin, accidental (unintentional), initial encounter (principal); J69.0 Pneumonitis due to inhalation of food and vomit; A41.9 Sepsis, unspecified organism; T18.2XXA Foreign body in stomach, initial encounter; Z20.822 Contact with and (suspected) exposure to COVID-19; F11.10 Opioid abuse, uncomplicated; F12.10 Cannabis abuse, uncomplicated; F14.10 Cocaine abuse, uncomplicated; F32.A Depression, unspecified; R79.1 Abnormal coagulation profile; Z72.0 Tobacco use; Z71.51 Drug abuse counseling and surveillance of drug abuser; Z81.8 Family history of other mental and behavioral disorders; Y92.009 Unspecified place in unspecified non-institutional (private) residence as the place of occurrence of the external cause
CPT/HCPCS: 99285; 96376 ×2; 96361 ×2; 96366 ×2; 96367; 82075; 96365; 96375 ×2; 80053; 80048; 83735; 84100; 85025; 85027; 85610; 87040; 80306; 87636; 71100; 71045; 74018; G0378 ×2; J2310; J2405; J0295 ×2; J0131; J1885 ×2

== ENCOUNTER 2024-12-19 23:07 | Emergency (ER) | payer OTHER ==
[2024-12-19 23:25] VITALS: TEMP 97.7
[2024-12-19 23:46] LABS: Glucose,Whole Blood 119 mg/dL (70-110)
--- NOTE | 2024-12-19 23:53 | ED ---
General Adult HPI - General Chief complaint: Recheck/Abnormal Lab/Rx Stated complaint: Drug use Time Seen by Provider: 12/19/24 23:16 Source: patient, EMS Mode of arrival: EMS - History of Present Illness Initial comments: Patient is a 29-year-old male history of chronic back pain, heroin abuse presenting today for not feeling well after heroin use. Pt was in a car with his friends when they got pulled over after using heroin. Pt states that he did not feel "right" afterwards, like he was withdrawing, stating he felt chills so was brought to the ED. Denies additional drug or alcohol use. States that he is feeling better now. States he uses heroin because of chronic low back pain. No recent falls or injuries. No saddle anesthesia, no recent spinal injections or surgeries, no urinary incontinence or difficulty urinating, no incontinence of stool. No fevers. No history of cancer. States that he used to be prescribed oxycodone and Percocet which used to help his pain, which is why he uses heroin. Does have a history of asthma so his chest feels a little bit "tight" but otherwise denies shortness of breath, chest pain, abdominal pain, nausea vomiting or diarrhea. - Related Data Previous Rx's Medication Instructions Recorded Amoxic-Pot Clav 875-125Mg 1 tab PO Q12HR 5 Days #10 tab 01/11/22 [Augmentin 875-125] Ibuprofen [Motrin] 600 mg PO Q8HR PRN #30 tab 01/11/22 Pantoprazole [Protonix] 40 mg PO DAILY #30 tab 01/11/22 Allergies Allergy/AdvReac Type Severity Reaction Status Date / Time No Known Allergies Allergy Verified 12/19/24 23:25 Review of Systems ROS Statement: Those systems with pertinent positive or pertinent negative responses have been documented in the HPI. ROS Other: All systems not noted in ROS Statement are negative. Past Medical History Past Medical History: No Reported History Additional Past Medical History / Comment(s): heroin use, kidney stones History of Any Multi-Drug Resistant Organisms: None Reported Past Surgical History: No Surgical Hx Reported Additional Past Surgical History / Comment(s): stent in left kidney for stone (2017) Past Psychological History: No Psychological Hx Reported Smoking Status: Current every day smoker Past Alcohol Use History: Rare Past Drug Use History: Heroin General Exam - General Exam Comments Initial Comments: PE: CONSTITUTIONAL: No apparent distress, well appearing SKIN: Warm, dry, no jaundice, hives or petechiae EYES: Pupils are equally round, extraocular movements intact without nystagmus, clear conjunctiva, non-icteric sclera HENT: Normocephalic, atraumatic, moist mucus membranes, oropharynx clear without exudates NECK: , Full range of motion, normal appearance PULMONARY: Clear to auscultation without wheezes, rhonchi, or rales, normal excursion, no accessory muscle use and no stridor CARDIOVASCULAR: Regular rate, rhythm, normal S1 and S2. No appreciated murmurs, rubs or gallops. Strong radial pulses with intact distal perfusion. No lower extremity edema GASTROINTESTINAL: Soft, active bowel sounds throughout, non-tender, non- distended, no palpable masses, no rebound or guarding. No hepatosplenomegaly GENITOURINARY: MUSCULOSKELETAL: Extremities have no gross deformity, no edema, redness, or swelling. No midline spinal TTP, right SI joint TTP NEUROLOGIC:_a/o x 3, GCS 15, normal mentation and speech. Moves all extremities x 4 without motor or sensory deficit PSYCHIATRIC:_normal mood and affect, thought process is clear and linear Course Vital Signs 12/19/24 23:13 Temperature 97.7 F Pulse Rate 92 Respiratory 18 Rate Blood Pressure 141/75 O2 Sat by Pulse 97 Oximetry Medical Decision Making - Medical Decision Making Was pt. sent in by a medical professional or institution ([facility], [employer], urgent care, hospital, or group home...) When possible be specific @ -[No] Did you speak to anyone other than the patient for history (EMS, parent, family, police, friend...)? What history was obtained from this source @ -[No] Did you review nursing and triage notes (agree or disagree)? Why? @ -[I reviewed and agree with nursing and triage notes] Were old charts reviewed (outside hosp., previous admission, EMS record, old EKG, old radiological studies, urgent care reports/EKG's, group home records)? Report findings @ -[Medical records reviewed] Differential Diagnosis (chest pain, altered mental status, abdominal pain women, abdominal pain men, vaginal bleeding, weakness, fever, dyspnea, syncope, headache, dizziness, GI bleed, back pain, seizure, CVA, palpatations, mental health, musculoskeletal)? @ -[not applicable]. EKG interpreted by me (3pts min.). @ -[As above] X-rays interpreted by me (1pt min.). @ -[None done] CT interpreted by me (1pt min.). @ -[None done] U/S interpreted by me (1pt. min.). @ -[None done] What testing was considered but not performed or refused? (CT, X-rays, U/S, labs)? Why? @ -[None] What meds were considered but not given or refused? Why? @ -[None] Did you discuss the management of the patient with other professionals (professionals i.e. , PA, [employer] [facility] [employer], lab, RT, psych nurse, social media editor, political scientist, teacher, chief program officer, casey saw operator)? Give summary @ -[No] Was smoking cessation discussed for >3mins.? @ -[No] Was critical care preformed (if so, how long)? @ -[No] Were there social determinants of health that impacted care today? How? (Homelessness, low income, unemployed, alcoholism, drug addiction, transportation, low edu. Level, literacy, decrease access to med. care, alf, rehab)? @ -Heroin abuse Was there de-escalation of care discussed even if they declined (Discuss DNR or withdrawal of care, Hospice)? @ -[No] What co-morbidities impacted this encounter? (DM, HTN, Smoking, COPD, CAD, Cancer, CVA, ARF, Chemo, Hep., AIDS, mental health diagnosis, sleep apnea, morbid obesity)? @ -[Asthma, chronic back pain Was patient admitted / discharged? Hospital course, mention meds given and route, prescriptions, significant lab abnormalities, going to OR and other pertinent info. @ -[hospital course] is a pleasant 29-year-old gentleman presenting today for not feeling well after using heroin. On my assessment he is awake and alert, is mildly tachycardic on arrival. Otherwise vital signs in acceptable limits, lungs are clear to auscultation bilaterally, he has no midline spinal tenderness palpation, some rest right SI joint tenderness. Denies any red flag symptoms of back pain. Pain is chronic in nature without any new injuries. As patient is currently awake and alert we will observe for brief period of time to ensure no respiratory depression after heroin use. Patient be given a lidocaine patch, Tylenol and Toradol, will obtain UDS. Additionally patient will given albuterol inhaler due to endorsed chest tightness. Patient agreeable with plan of care Undiagnosed new problem with uncertain prognosis? @ -[No] Drug Therapy requiring intensive monitoring for toxicity (Heparin, Nitro, Insulin, Cardizem)? @ -[No] Were any procedures done? @ -[No] Diagnosis/symptom? @ -[default] Acute, or Chronic, or Acute on Chronic? @ -[default] Uncomplicated (without systemic symptoms) or Complicated (systemic symptoms)? @ -[default] Side effects of treatment? @ -[No] Exacerbation, Progression, or Severe Exacerbation? @ -[No] Poses a threat to life or bodily function? How? (Chest pain, [place], [place], pneumonia, PE, COPD, DKA, ARF, appy, cholecystitis, CVA, Diverticulitis, Homicidal, Suicidal, threat to staff... and all critical care pts) @ -[No] - Lab Data Lab Results 12/19/24 Range/Units 23:46 POC Glucose (mg/dL) 119 H (70-110) mg/dL POC Glu Motion Picture Camera Operator ID Emory Yi Disposition Clinical Impression: Heroin abuse Disposition: HOME SELF-CARE Condition: Stable Instructions (If sedation given, give patient instructions): Opioid Use Disorder (ED) Additional Instructions: Every disease is a spectrum and a small chance still exists that a serious condition could develop, for this reason, please monitor yourself closely for new, changing or worsening symptoms, symptoms that persist beyond [24 hours], difficulty in breathing, chest pain, numbness in your legs, difficulty urinating or inability to urinate, [fever], inability to tolerate/keep down fluids or your medications, inability to follow up with outpatient providers as instructed and should you experience these symptoms or should you have any further concerns for your wellbeing please return to the ED or call 911 immediately. Return to the emergency department if you develop constipation, urinary retention, loss of bowel or bladder function, numbness or tingling into the rectum, groin, or develop fevers and chills PLEASE call your primary care physician as soon as possible to arrange / discuss plan for followup appointment. Appointment in the next 1-3 days is strongly encouraged if possible. PLEASE let us know here before you leave if there is anything further we can do to be of any assistance. Take care and feel Better! Is patient prescribed a controlled substance at d/c from ED?: No Referrals: None,Stated [Primary Care Provider] - 1-2 days Forms: Inp Substance Abuse Facilities, NA Meetings in [facility] PCPs
[2024-12-19] MEDS: ACETAMINOPHEN TAB 500 MG TAB PO STA (23:56)
[2024-12-19] MEDS: KETOROLAC 15 MG/ML 1 ML VIAL IM STA (23:56)
[2024-12-19] MEDS: LIDOCAINE 4% PATCH TOPICAL ONE (23:57)
[2024-12-20 00:35] LABS: Amphetamine Screen,Urine Detected (NotDetected); Barbiturate Screen,Urine Not Detected (NotDetected); Benzodiazepines Screen,Urine Not Detected (NotDetected); Cocaine Screen,Urine Detected (NotDetected); Methadone Screen, Urine Not Detected (NotDetected); Opiate Screen,Urine Detected (NotDetected); Oxycodone Screen, Urine Not Detected (NotDetected); Phencyclidine Screen,Urine Not Detected (NotDetected); Tricyclic Antidepressant,Urine Not Detected (NotDetected); Urn Cannabinoid Scrn Not Detected (NotDetected)
[2024-12-20] MEDS: ALBUTEROL HFA INHALER INHALATION STA (01:03)
[2024-12-20 01:06] VITALS: BP 131/74; PULSE 90; RESP 20
== END 2024-12-20 01:33 | disposition home or self-care (01) ==
LOC: EC 23:07
DX: F11.10 Opioid abuse, uncomplicated (principal); J45.909 Unspecified asthma, uncomplicated; F17.200 Nicotine dependence, unspecified, uncomplicated
CPT/HCPCS: 36415; 80306; 94640; 99284